=== PATIENT | female | born 1995 | race American Indian/Alaskan Native ===

== ENCOUNTER 2018-10-06 12:22 | Emergency (ER) | payer MEDICAID ==
[2018-10-06 12:29] VITALS: BP 124/78
--- NOTE | 2018-10-06 12:31 | Emergency Department Report ---
Chief Complaint: Vaginal Bleeding Stated Complaint: 7WKS /VAGINAL BLEEDING Time Seen by Provider: 10/06/18 12:26 - HPI History of Present Illness: This is a 22 y.o. female that presents to the ER with vaginal bleeding and 6 weeks . Confirmed with [facility]. PMH of Asthma Denies pain Reports vaginal bleeding x 3 days LMP: 08/26/18, A0 - Exam Vital Signs: Vital Signs 10/06/18 12:27 Temperature 98 F Pulse Rate 85 Respiratory 18 Rate Blood Pressure 124/78 O2 Sat by Pulse 100 Oximetry MSE screening note: Focused history and physical exam performed. Due to findings the following was ordered: Labs and OB US Fast track for further evaluation. ED Disposition for MSE Condition: Stable
[2018-10-06 13:16] LABS: Basophils % (Auto) 0.5 % (0.0-1.8); Eosinophils # (Auto) 0.1 K/mm3 (0.0-0.4); Eosinophils % (Auto) 1.1 % (0.0-4.3); Hematocrit 39.2 % (30.3-42.9); Lymphocytes # (Auto) 1.5 K/mm3 (1.2-5.4); Lymphocytes % (Auto) 27.9 % (13.4-35.0); Mean Corpuscular HGB Conc 33 % (30-34); Mean Corpuscular Volume 94 fl (79-97); Monocytes # (Auto) 0.4 K/mm3 (0.0-0.8); Monocytes % (Auto) 8.1 % (0.0-7.3); Platelet Count 251 K/mm3 (140-440); Red Blood Count 4.16 M/mm3 (3.65-5.03); Red Cell Distribution Width 13.9 % (13.2-15.2)
[2018-10-06 14:01] LABS: Bilirubin,Urine NEG (Negative); Blood,Urine MOD (Negative); Color,Urine Yellow (Yellow); Mucus,Urine 2+ /HPF; Protein,Urine <15 mg/dL mg/dL (Negative)
--- NOTE | 2018-10-06 15:06 | Emergency Department Report ---
ED Female HPI - General Chief complaint: Vaginal Bleeding Stated complaint: 7WKS /VAGINAL BLEEDING Time Seen by Provider: 10/06/18 12:26 Source: patient Mode of arrival: Ambulatory Limitations: No Limitations - History of Present Illness Initial comments: This is a 22-year-old children P0 female who presents to ED complaining of vaginal bleeding that began yesterday Patient reports pain person is 6 weeks and had a confirmed of left-sided [facility]. She states bleeding was little and resolved yesterday but today she noticed a blood clot when she went to urinate. She denies f/c/n/v/d Complaint: vaginal bleeding - Related Data Allergies Allergy/AdvReac Type Severity Reaction Status Date / Time No Known Allergies Allergy Unverified 10/06/18 12:26 ED Review of Systems ROS: Stated complaint: 7WKS /VAGINAL BLEEDING Other details as noted in HPI Comment: All other systems reviewed and negative ED Past Medical Hx - Past Medical History Previous Medical History?: Yes Hx Asthma: Yes - Surgical History Past Surgical History?: No - Social History Smoking Status: Never Smoker Substance Use Type: None ED Physical Exam - General Limitations: No Limitations General appearance: alert, in no apparent distress - Head Head exam: Present: atraumatic, normocephalic - Eye Eye exam: Present: normal appearance - ENT ENT exam: Present: mucous membranes moist - Neck Neck exam: Present: normal inspection - Respiratory Respiratory exam: Present: normal lung sounds bilaterally. Absent: respiratory distress - Cardiovascular Cardiovascular Exam: Present: regular rate, normal rhythm. Absent: systolic murmur, diastolic murmur, rubs, gallop - GI/Abdominal GI/Abdominal exam: Present: soft, normal bowel sounds - Extremities Exam Extremities exam: Present: normal inspection - Back Exam Back exam: Present: normal inspection - Neurological Exam Neurological exam: Present: alert, oriented X3 - Psychiatric Psychiatric exam: Present: normal affect, normal mood - Skin Skin exam: Present: warm, dry, intact, normal color. Absent: rash ED Course Vital Signs 10/06/18 10/06/18 12:27 12:58 Temperature 98 F Pulse Rate 85 Respiratory 18 16 Rate Blood Pressure 124/78 O2 Sat by Pulse 100 Oximetry ED Medical Decision Making - Lab Data Result diagrams: 10/06/18 12:41 - Radiology Data Radiology results: report reviewed, image reviewed FINDINGS: Uterus measures 8.4 x 5.3 x 6.2 cm. Intrauterine gestational sac is identified. Mean diameter 13.1 cm. Gestational age 6 weeks 1 day. Estimated date of delivery May 31, 2019 There is a questionable second gestational sac measuring 15.7 mm. This would correlate with 6 weeks 3 days. Estimated date of delivery May 29, 2019 Question twin gestation. Viability not established. No pole. No cardiac activity. Second area questioned as gestational sac may represent subchorionic hemorrhage. Right ovary not visualized. Left ovary measures 2.7 x 2.0 x 2.3 cm. No adnexal mass. No free fluid. IMPRESSION: Twin gestation versus single gestational sac with adjacent subchorionic hemorrhage. Gestational age 6 weeks 1 day. Estimated date of delivery May 31, 2019 Viability not established. No pole or cardiac motion. Follow-up and correlation with beta hCG This document is electronically signed by Kevin Brown MD., Oct 06 2018 03:21:49 PM ET Transcribed By: HJ Dictated By: KEVIN BROWN MD Electronically Authenticated By: KEVIN BROWN MD Signed Date/Time: 10/06/18 1523 - Medical Decision Making 22 year-old female presents to ED with threatened ED course: Pt received ultra sound, CBC, urinalysis, test and quantita tive ED All labs within normal limits, quantitative elevated matching gestation age Patient states that bleeding is resolved when she is went into the bathroom to check Patient is followed by an [facility] cycle Ultrasound shows twin gestation versus single gestation with no cardiac activity see reported above Vital signs normalized patient is in no acute distress. I discussed with the patient to follow-up with her [facility]. I discussed all labs and ultrasound findings with the patient. I discussed with the patient that he if bleeding worsens or new symptoms develop to return to ED immediately Critical care attestation.: If time is entered above; I have spent that time in minutes in the direct care of this critically ill patient, excluding procedure time. ED Disposition Clinical Impression: Vaginal bleeding during Disposition: DC-01 TO HOME OR SELFCARE Is pt being admited?: No Does the pt Need Aspirin: No Condition: Stable Instructions: Threatened Miscarriage (ED), (ED) Additional Instructions: Make sure to follow up with the primary care physician as discussed. Take all your medications as you've been prescribed. If you have any worsening symptoms or develop new symptoms please return to ED immediately. Referrals: KHURRAM CONTE MD [Primary Care Provider] - 3-5 Days [facility] [Provider Group] - 3-5 Days [facility] [Provider Group] - 3-5 Days [facility] [Provider Group] - 3-5 Days Forms: Work/School Release Form(ED) Time of Disposition: 16:11
--- NOTE | 2018-10-06 15:23 | Ultrasound Report ---
PROCEDURE: US OB <= 14 WEEKS FETUS, US OB TRANSVAGINAL TECHNIQUE: Transverse longitudinal sonograms obtained with transabdominal and transvaginal sonograph y. HISTORY: vaginal bleeding, 6 wks gest COMPARISONS: None FINDINGS: Uterus measures 8.4 x 5.3 x 6.2 cm. Intrauterine gestational sac is identified. Mean diameter 13.1 cm. Gestational age 6 weeks 1 day. Est imated date of delivery May 31, 2019 There is a questionable second gestational sac measuring 15.7 mm. This would correlate with 6 weeks 3 days. Estimated date of delivery May 29, 2019 Question twin gestation. Viability not established. No pole. No cardiac activity. Second area q uestioned as gestational sac may represent subchorionic hemorrhage. Right ovary not visualized. Left ovary measures 2.7 x 2.0 x 2.3 cm. No adnexal mass. No free fluid. IMPRESSION: Twin gestation versus single gestational sac with adjacent subchorionic hemorrhage. Gestational age 6 weeks 1 day. Estimated date of delivery May 31, 2019 Viability not established. No pole or cardiac motion. Follow-up and correlation with beta hCG This document is electronically signed by Kevin Brown MD., Oct 06 2018 03:21:49 PM ET
== END 2018-10-06 16:28 | disposition home or self-care (01) ==
LOC: ED 12:22
DX: O46.91 Antepartum hemorrhage, unspecified, first trimester (principal); J45.909 Unspecified asthma, uncomplicated; Z3A.01 Less than 8 weeks gestation of pregnancy
CPT/HCPCS: 36415; 76801; 76817; 81001; 84702; 84703; 85025; 86900; 86901; 99284

== ENCOUNTER 2019-05-21 14:13 | Outpatient (CLI) | payer MEDICAID ==
[2019-05-21 14:32] VITALS: BP 126/80
== END 2019-05-21 15:30 | disposition home or self-care (01) ==
LOC: TRG 14:13
PROVIDERS: ATTEND Obstetrics & Gynecology
DX: O47.1 False labor at or after 37 completed weeks of gestation (principal); Z3A.40 40 weeks gestation of pregnancy
CPT/HCPCS: 59025

== ENCOUNTER 2019-05-23 15:58 | Inpatient (IN) | payer MEDICAID ==
[2019-05-23] MEDS ORDERED: LACTATED RINGERS 1,000 ML ONE (16:37)
[2019-05-23] MEDS ORDERED: TERBUTALINE 1 MG/1 ML INJ SUB-Q PRN (16:53)
[2019-05-23] MEDS ORDERED: TERBUTALINE 1 MG/1 ML INJ IVP PRN (16:53)
[2019-05-23] MEDS ORDERED: ePHEDrine SULFATE 50 MG/1 ML INJ IV PRN (16:53)
[2019-05-23] MEDS ORDERED: BUTORPHANOL 2 MG/1 ML INJ IV PRN (16:53)
[2019-05-23] MEDS ORDERED: MINERAL OIL 30 ML ORAL LIQD PO PRN (16:53)
[2019-05-23] MEDS ORDERED: fentaNYL 100 MCG/2 ML INJ IV PRN (16:53)
[2019-05-23] MEDS ORDERED: LIDOCAINE (2%) 20 MG/1 ML VIAL 20 ML MDV INFILTRATI ONE (16:53)
[2019-05-23] MEDS ORDERED: LACTATED RINGERS 1,000 ML IV SCH (17:00)
[2019-05-23 17:11] LABS: Hematocrit 39.4 % (30.3-42.9); Mean Corpuscular HGB Conc 33 % (30-34); Mean Corpuscular Volume 93 fl (79-97); Platelet Count 154 K/mm3 (140-440); Red Blood Count 4.25 M/mm3 (3.65-5.03); Red Cell Distribution Width 14.8 % (13.2-15.2)
[2019-05-23] MEDS ORDERED: AMPICILLIN/NS 2 GM/100 ML 2 GM/100 ML BAG IV ONE (17:53)
[2019-05-23] MEDS ORDERED: OXYTOCIN 20 UNIT/1000ML DRIP 20 UNITS/1,000 ML BAG IV SCH (18:00)
--- NOTE | 2019-05-23 19:01 | History and Physical Report ---
History of Present Illness Date of examination: 05/23/19 Date of admission: 05/23/19 16:57 Chief complaint: Labor History of present illness: 23 year old presents with contractions. Patient denies leaking of fluid or vaginal bleeding. Patient reports active movement. Patient received care at [facility] and was able to look up records on the computer. LMP 08/26/18; EDC 06/02/19 (confirmed by 9 week US). significant for the following: varicella nonimmune, vitamin D deficiency (supplemented with vitamin D), chlamydia (treated and cured), history of preeclampsia with first . labs are as follows: A+, antibody screen negative, pap smear negative, rubella immune, varicella nonimmune, hepatitis B surface antigen negative, HIV negative, RPR nonreactive, HSV 2 negative, hemoglobin electrophoresis negative, GC negative/negative, chlamydia positive/negative, trichomonas negative/negative, 1 hour sugar test 81, GBS positive. Past History Past Medical History: other (history of preeclampsia with a previous ) Past Surgical History: no surgical history [facility] History: chlamydia (treated and cured in this ). denies: gonorrhea, hepatitis B, herpes, HIV, syphilis, trichomonas Family/Genetic History: none Social history: single (history of preeclampsia with a previous ), lives with family, full code. denies: smoking, alcohol abuse, prescription drug abuse, IV drug use - Obstetrical History Expected Date of Delivery: 06/02/19 Actual Gestation: 38 Week(s) 5 Day(s) : 3 Para: 2 Hx # Term Pregnancies: 2 Number of Pregnancies: 0 Spontaneous Abortions: 0 Induced : 0 Number of Living Children: 2 Medications and Allergies Allergies Allergy/AdvReac Type Severity Reaction Status Date / Time No Known Allergies Allergy Unverified 10/06/18 12:26 Home Medications Medication Instructions Recorded Confirmed Last Taken Type No Known Home Medications [No 05/24/19 05/24/19 Unknown History Reported Home Medications] Active Meds: Active Medications Butorphanol Tartrate (Stadol) 2 mg IV Q2H PRN PRN Reason: Pain , Severe (7-10) Ephedrine Sulfate (Ephedrine Sulfate) 10 mg IV Q2M PRN PRN Reason: Hypotension Fentanyl (Sublimaze) 100 mcg IV Q2H PRN PRN Reason: Labor Pain Last Admin: 05/23/19 17:41 Dose: 100 mcg Documented by: Oxytocin/Sodium Chloride (Pitocin/Ns 20 Unit/1000ml Drip) 20 units in 1,000 mls @ 125 mls/hr IV DIRECT MACARIO Lactated Ringer's (Lactated Ringers) 1,000 mls @ 125 mls/hr IV DIRECT MACARIO Mineral Oil (Mineral Oil) 30 ml PO QHS PRN PRN Reason: Constipation Terbutaline Sulfate (Brethine) 0.25 mg SUB-Q ONCE PRN PRN Reason: Hyperstimulation/Hypertonicity Terbutaline Sulfate (Brethine) 0.25 mg IVP ONCE PRN PRN Reason: Hyperstimulation/Hypertonicity Review of Systems All systems: negative (contractions) - Vital Signs Vital signs: Vital Signs Temp Pulse Resp BP 98.1 F 104 H 18 115/64 05/23/19 16:14 05/23/19 16:14 05/23/19 16:14 05/23/19 16:14 Temp Pulse Resp BP Pulse Ox 98.1 F 88 18 114/59 96 05/23/19 16:14 05/23/19 18:11 05/23/19 16:14 05/23/19 18:11 05/23/19 16:16 - Physical Exam Abdomen: Positive: normal appearance, soft. Negative: distention, tenderness, guarding Genitourinary (Female): Positive: normal external genitalia, normal perenium, perineal/vulvar lesions (no lesions noted on careful exam with bright light upon admission) Vagina: Positive: normal moisture Uterus: Positive: enlarged (S=D). Negative: nodular, tender Anus/Rectum: Positive: normal perianal skin Extremities: Positive: normal. Negative: tenderness, edema - Obstetrical FHR: category 1 Uterine Contraction Monitor Mode: External Cervical Dilatation: 6.5 Cervical Effacement Percentage: 90 station: -2 Uterine Contraction Pattern: Regular Uterine Contraction Intensity: Moderate Results Result Diagrams: 05/23/19 22:42 All other labs normal. Assessment and Plan A: Term . Active labor. GBS positive. 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 GBS prophylaxis. EFM. Anticipate vaginal .
--- NOTE | 2019-05-23 19:23 | Procedure Note ---
<CHAD MCKINNEY - Last Filed: 05/23/19 19:20> OB Delivery Note - Delivery Date of Delivery: 05/23/19 Surgeon: SHI MORRIS Estimated blood loss: 200cc - Vaginal Delivery presentation: vertex Delivery position: OA Intrapartum events: other(please specify) (short cord, precipitous delivery) Delivery induction: none Delivery monitor: external FHT, external uterine, internal FHT Route of delivery: Delivery placenta: spontaneous Delivery cord: 3 umbilical vessels, other (short cord) Delivery laceration: none Anesthesia: none Delivery comments: Spontaneous vaginal delivery at of liveborn female weighing over intact perineum with apgars of 8/9. Short cord. Baby placed skin to skin with mom immediately after delivery. Spontaneous cry and respirations. Baby dried and bulb suctioned. 3 vessel cord double clamped and cut after cessation of pulsation. Spontaneous delivery of intact placenta and membranes by caba mechanism. EBL 200 cc. Pitocin to IV fluids after delivery of placenta. Fundus firm and midline. No lacerations noted. Vaginal sweep negative. Sponge count correct. Mother and baby stable. <SHI MORRIS - Last Filed: 05/23/19 19:36> OB Delivery Note - Vaginal Delivery comments: Note: The above draft was accidentally typed under wrong provider. See delivery note below. Spontaneous vaginal delivery at 19:07 of liveborn female infant weighing 7 lb. 13 oz. over intact perineum with apgars of 8/9. Short cord. Baby placed skin to skin with mom immediately after delivery. Spontaneous cry and respirations. Baby dried and bulb suctioned. 3 vessel cord double clamped and cut after cessation of pulsation. Spontaneous delivery of intact placenta and membranes 19:10 by caba mechanism. EBL 200 cc. Pitocin to IV fluids after delivery of placenta. Fundus firm and midline. No lacerations noted. Vaginal sweep negative. Sponge count correct. Mother and baby stable. Shi Morris CNM
[2019-05-23] MEDS ORDERED: IBUPROFEN 800 MG TAB ONE (19:26)
[2019-05-23] MEDS ORDERED: LANOLIN/ZINC/DIMETHICONE (LANSINOH) 7 GM TP PRN (19:27)
[2019-05-23] MEDS ORDERED: MAGNESIUM HYDROXIDE (MOM) ORAL LIQD UDC PO PRN (19:27)
[2019-05-23] MEDS ORDERED: WITCH HAZEL/ GLYCERIN PAD TP PRN (19:27)
[2019-05-23] MEDS: HYDROcodone/ACETAMINOPHEN 5-325 MG TAB PO PRN (22:42)
[2019-05-23 22:57] LABS: Hematocrit 35.6 % (30.3-42.9); Hemoglobin 12.1 gm/dl (10.1-14.3)
[2019-05-24] MEDS: IBUPROFEN 800 MG TAB PO PRN ×3 (05:54→18:35)
[2019-05-24 09:26] LABS: Hematocrit 37.6 % (30.3-42.9); Hemoglobin 12.2 gm/dl (10.1-14.3)
[2019-05-24] MEDS: HYDROcodone/ACETAMINOPHEN 5-325 MG TAB PO PRN ×2 (13:17→23:45)
[2019-05-24] MEDS: DOCUSATE SODIUM 100 MG CAP PO SCH ×2 (13:22→21:49)
--- NOTE | 2019-05-24 14:09 | Progress Note ---
Assessment and Plan A: day 1 S/P . P: Plan to discharge patient home tomorrow if she continues to do well. Subjective - Subjective Date of service: 05/24/19 Principal diagnosis: day 1 S/P . Interval history: day 1 S/P . Doing well. Voiding without difficulty, ambulating well, tolerating a regular diet. Patient reports: appetite normal, voiding normally, pain well controlled, flatus, ambulating normally, no dizzy ambulation, no nauseated : doing well Objective - Vital Signs Latest vital signs: Vital Signs Temp Pulse Resp BP BP Pulse Ox 05/24/19 11:17 98.4 F 74 20 121/66 95 05/24/19 07:39 97.8 F 69 20 119/62 96 05/24/19 01:21 98.1 F 82 20 96/43 95 05/23/19 21:10 98.0 F 86 20 123/54 99 05/23/19 20:34 70 100 05/23/19 20:33 77 123/58 05/23/19 20:32 79 99 05/23/19 20:16 93 H 99 05/23/19 20:11 76 99 05/23/19 20:09 75 124/63 05/23/19 20:06 77 100 05/23/19 20:03 78 94 05/23/19 20:01 74 100 05/23/19 19:56 82 100 05/23/19 19:55 89 121/65 05/23/19 19:54 83 32 L 05/23/19 19:51 72 98 05/23/19 19:48 71 94 05/23/19 19:46 74 98 05/23/19 19:42 97.2 F L 82 18 114/59 05/23/19 19:41 76 96 05/23/19 19:39 72 124/66 05/23/19 19:15 82 114/59 05/23/19 18:11 88 114/59 05/23/19 17:56 90 115/60 05/23/19 17:40 83 104/53 05/23/19 17:30 98.2 F 05/23/19 17:17 97 H 138/88 05/23/19 16:16 94 H 96 05/23/19 16:14 98.1 F 104 H 18 115/64 Intake and Output 05/23/19 05/24/19 05/24/19 23:59 07:59 15:59 Intake Total 1480 240 Output Total 500 Balance 980 240 Intake: IV 1000 PITOCin/NS 20 UNIT/1000ML 1000 DRIP 20 units In 1,000 ml @ 125 mls/hr IV DIRECT MACARIO Rx#:[id number] Oral 480 240 Output: Urine 500 Void 500 Other: Total, Intake Amount 480 240 Total, Output Amount 500 # Voids Void 1 Weight 90.718 kg - Exam Abdomen: Present: normal appearance, soft. Absent: distention, tenderness, guarding, rigidity Uterus: Present: normal, fundal height below umbilicus. Absent: tenderness Extremities: Present: normal
--- NOTE | 2019-05-25 14:00 | Progress Note ---
Assessment and Plan A: day 2 S/P . P: Discharge patient home today. Discussd with patient discharge instructions and warning signs. Advised patient to avoid intercourse, lifting and heavy housework, driving. Advised patient to follow up at [facility] in 6 weeks for exam. Patient voiced understanding of instructions. Subjective - Subjective Date of service: 05/25/19 Principal diagnosis: day 2 S/P . Interval history: day 2 S/P . Doing well. Voiding without difficulty, ambulating well, tolerating a regular diet. Patient desires discharge today. Patient reports: appetite normal, voiding normally, pain well controlled, flatus, ambulating normally, no dizzy ambulation, no nauseated [place]: doing well Objective - Vital Signs Latest vital signs: Vital Signs Temp Pulse Resp BP Pulse Ox 05/25/19 08:04 98.3 F 59 L 20 109/52 99 05/25/19 00:36 97.8 F 68 20 113/55 96 05/24/19 16:07 97.7 F 66 20 115/42 98 Intake and Output 05/24/19 05/25/19 05/25/19 23:59 07:59 15:59 Intake Total 240 480 360 Balance 240 480 360 Intake: Oral 240 480 360 Other: Total, Intake Amount 240 240 120 # Voids Void 1 1 1 - Exam Cardiovascular: Present: Regular rate, Normal S1, Normal S2 Lungs: Present: Clear to auscultation Abdomen: Present: normal appearance, soft. Absent: distention, tenderness Uterus: Present: normal, firm, fundal height below umbilicus. Absent: bogginess, tenderness Extremities: Present: normal. Absent: tenderness, edema
--- NOTE | 2019-05-25 14:07 | Discharge Summary ---
Providers - Providers Date of Admission: 05/23/19 16:57 Date of discharge: 05/25/19 Attending physician: CHAD MCKINNEY Primary care physician: CHANDLER MEDEROS MD Hospitalization Reason for admission: active labor Delivery: Episiotomy: none Other procedures: none complications: none Discharge diagnosis: IUP at term delivered baby: female Pertinent studies: Labs Hospital course: Normal hospital course. Condition at discharge: Good Disposition: DC-01 TO HOME OR SELFCARE - Discharge Diagnoses (1) Term delivered Status: Acute Plan - Provider Discharge Summary Activity: routine, no sex for 6 weeks, no heavy lifting 4 weeks, no strenuous exercise Diet: routine Instructions: routine Additional instructions: Call your doctor immediately for: * Fever > 100.5 * Heavy vaginal bleeding ( >1 pad per hour) * Severe persistent headache * Shortness of breath * Reddened, hot, painful area to leg or breast - Follow up plan Follow up: CHANDLER MEDEROS MD [Primary Care Provider] - 6 Weeks
[2019-05-25] MEDS: HYDROcodone/ACETAMINOPHEN 5-325 MG TAB PO PRN (15:56)
[2019-05-25] MEDS: DOCUSATE SODIUM 100 MG CAP PO SCH (15:56)
[2019-05-25 16:15] VITALS: BP 118/79
== END 2019-05-25 17:15 | disposition home or self-care (01) | DRG 775 ==
LOC: TRG 15:58 → LD 16:57 → OB 21:42
PROVIDERS: ADMIT Obstetrics & Gynecology; ATTEND Obstetrics & Gynecology
PROC: 10E0XZZ Delivery of Products of Conception, External Approach (ICD-10-PCS; principal; 2019-05-23)
DX: O99.824 Streptococcus B carrier state complicating childbirth (principal); O62.3 Precipitate labor; O69.3XX0 Labor and delivery complicated by short cord, not applicable or unspecified; Z3A.38 38 weeks gestation of pregnancy; Z37.0 Single live birth
CPT/HCPCS: 36415; 59025; 85014; 85018; 85027; 86850; 86900; 86901; G0378; A6250; J0290; J2590; J3010; J7120